=== PATIENT | female | born 1965 | race Caucasian/White ===

== ENCOUNTER 2017-10-22 19:21 | Emergency (ER) | payer OTHER ==
[~2017-10-22] VITALS: Ht 162.6 cm; Wt 77.1 kg
[2017-10-22 19:24] VITALS: BP 138/90
--- NOTE | 2017-10-22 19:30 | NUR ---
PT.AMBULATES TO OF 1
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
--- NOTE | 2017-10-22 19:40 | NUR ---
Patient being evaluated by CLAIRE MARINA
[2017-10-22] MEDS ORDERED: IBUPROFEN 800 MG TAB PO ONE (19:45)
[2017-10-22] MEDS ORDERED: HYDROcodone/APAP 7.5/325 MG 1 TAB PO ONE (19:45)
[2017-10-22 20:54] VITALS: BP 128/83
--- NOTE | 2017-10-22 20:54 | NUR ---
Patient discharged with v/s stable. Written and verbal after care instructions given and explained. Patient alert, oriented and verbalized understanding of instructions. Ambulatory with steady gait. All questions addressed prior to discharge. ID band removed. Patient advised to follow up with PMD IN 2-3 DAYS OR RETURN TO ER IF CONDITION WORSENS. Rx of FLEXERIL, AND IBUPROFEN given. Patient educated on indication of medication including possible reaction and side effects. Opportunity to ask questions provided and answered.
== END 2017-10-22 20:54 | disposition home or self-care (01) ==
LOC: MED 19:21
DX: S16.1XXA Strain of muscle, fascia and tendon at neck level, initial encounter (principal); M54.6 Pain in thoracic spine; V49.40XA Driver injured in collision with unspecified motor vehicles in traffic accident, initial encounter; Y93.89 Activity, other specified; Y92.89 Other specified places as the place of occurrence of the external cause; Y99.8 Other external cause status
CPT/HCPCS: 99283

== ENCOUNTER 2019-05-18 16:23 | Emergency (ER) | payer OTHER ==
[~2019-05-18] VITALS: Ht 170.2 cm; Wt 76.3 kg
[2019-05-18 16:32] VITALS: BP 141/83
[2019-05-18] MEDS ORDERED: FAMOTIDINE 20 MG TAB PO ONE (16:45)
[2019-05-18] MEDS ORDERED: LORATADINE 10 MG TAB PO ONE (16:45)
--- NOTE | 2019-05-18 16:45 | NUR ---
C/O OF ALLERGIC REACTION TO METHYPREDNISONE. PT RECEIVED METHYLPREDNISONE FROM CLINIC FOR BUG BITES ON LEG. PT STATES THAT "I FEEL OUT OF IT AND MY HEART IS RACING". RR EVEN NON-LABORED, BREATH SOUNDS CLEAR, AIRWAY PATENT, VOICE CLEAR, NO ANGIOEDEMA PRESENT. DENIES N/V/D; SKIN IS PINK/WARM/DRY; AAOX4 WITH EVEN AND STEADY GAIT; PT DENIES ANY FEVER, CP, SOB, OR COUGH AT THIS TIME; PATIENT STATES PAIN OF 0/10 AT THIS TIME; VSS; PATIENT POSITIONED FOR COMFORT; HOB ELEVATED; BEDRAILS UP X1; BED DOWN. ER MD MADE AWARE OF PT STATUS.
--- NOTE | 2019-05-18 17:52 | NUR ---
Dr. Hernandez re-evaluating patient at bedside.
[2019-05-18 18:26] VITALS: BP 117/74
--- NOTE | 2019-05-18 18:26 | NUR ---
Patient discharged with v/s stable. Written and verbal after care instructions given and explained. Patient alert, oriented and verbalized understanding of instructions. Ambulatory with steady gait. All questions addressed prior to discharge. ID band removed. Patient advised to follow up with PMD. Rx of Pepcid, Claritin, Hydrocortisone, and Epipen Auto injector given. Patient educated on indication of medication including possible reaction and side effects. Opportunity to ask questions provided and answered.
== END 2019-05-18 18:26 | disposition home or self-care (01) ==
LOC: MED 16:23
DX: T63.481A Toxic effect of venom of other arthropod, accidental (unintentional), initial encounter (principal); Z90.710 Acquired absence of both cervix and uterus; Y92.89 Other specified places as the place of occurrence of the external cause
CPT/HCPCS: 99283

== ENCOUNTER 2019-07-12 12:06 | Emergency (ER) | payer OTHER ==
[~2019-07-12] VITALS: Ht 167.6 cm; Wt 76.7 kg
[2019-07-12 12:15] VITALS: BP 131/85
--- NOTE | 2019-07-12 12:20 | NUR ---
PT AMBULATED TO ER BED 9
--- NOTE | 2019-07-12 12:23 | NUR ---
PT C/O LFT THUMB PAIN SINCE FOR 3 WEEKS. CONSTANT THROBBING PAIN 5/10. PER PT, LFT THUMB GTES STIFF IN MORNING AND PAIN TO MOVE OR GRAB. NO SWELLING, REDNESS NOTICED. CMS PRESENT IN LFT THUMB. VSS; PATIENT POSITIONED FOR COMFORT; HOB ELEVATED; BEDRAILS UP X1; BED DOWN. ER MD MADE AWARE OF PT STATUS.
--- NOTE | 2019-07-12 12:38 | NUR ---
DR. KATHLEEN BEDSIDE EVALUATING PT
[2019-07-12] MEDS ORDERED: KETOROLAC 60 MG/2 ML VIAL IM ONE (13:05)
[2019-07-12 13:42] VITALS: BP 140/86
== END 2019-07-12 13:42 | disposition home or self-care (01) ==
LOC: MED 12:06
DX: S63.602A Unspecified sprain of left thumb, initial encounter (principal); X58.XXXA Exposure to other specified factors, initial encounter; Y93.89 Activity, other specified; Y92.89 Other specified places as the place of occurrence of the external cause; Y99.8 Other external cause status
CPT/HCPCS: 29125; 73130; 96372; 99283; J1885; Q0092

== ENCOUNTER 2019-07-15 18:20 | Emergency (ER) | payer OTHER ==
[~2019-07-15] VITALS: Ht 162.6 cm; Wt 76.7 kg
[2019-07-15 18:25] VITALS: BP 134/91
[2019-07-15 20:23] VITALS: BP 134/91
== END 2019-07-15 20:19 | disposition home or self-care (01) ==
LOC: MED 18:20
DX: M77.9 Enthesopathy, unspecified (principal)
CPT/HCPCS: 99283